=== PATIENT | male | born 1950 | race Caucasian/White ===

== ENCOUNTER → 2022-12-22 13:58 | Outpatient (BNVA) | payer MEDICARE, BC, SELFPAY | PROVIDERS: PCP Family Medicine; Visit Provider Internal Medicine | DX: E03.9 Hypothyroidism, unspecified (principal); M79.643 Pain in unspecified hand | CPT/HCPCS: 36415; 73120; 80053; 83516; 84443; 85025; 85651; 86140; 86160; 86162; 86200; 86235; 86255; 86376; 86431; 86704; 86803; 87340; 99204 ==

== ENCOUNTER → 2023-02-18 09:06 | Outpatient (BNVA) | payer MEDICARE, BC, SELFPAY | PROVIDERS: PCP Family Medicine; Visit Provider Internal Medicine | DX: R76.8 Other specified abnormal immunological findings in serum (principal); M79.643 Pain in unspecified hand | CPT/HCPCS: 99214 ==